=== PATIENT | female | born 1935 | race Caucasian/White ===

== ENCOUNTER 2017-01-11 09:38 | Outpatient (CLI) | payer MEDICARE, OTHER | END 2017-01-11 09:39 | disposition critical access hospital (66) | LOC: EMS 09:38 | PROVIDERS: ATTEND Surgery | DX: R47.9 Unspecified speech disturbances (principal); R41.0 Disorientation, unspecified; R29.6 Repeated falls | CPT/HCPCS: A0425; A0427 ==

== ENCOUNTER 2017-01-11 09:55 | Inpatient (IN) | payer MEDICARE, OTHER ==
--- NOTE | 2017-01-11 10:22 | ED Physician Documentation ---
History of Present Illness - Stated complaint Stated Complaint: POSS CVA - Chief complaint Chief Complaint: Neuro - Additonal information Additional information: hx from pt 81 female a fib on coumadin and dig per her she awoke yesterday with expressive apahasia and diff walking last night she fell out of bed - but the sx were present prior to that pt denies HARDING and neck pain also denies chest and abd and ext pain no fever cough NVD urinary sx thinks she had a stroke Review of Systems Constitutional: denies: Fever, Chills Eyes: reports: Decreased vision (R eye on exma) Ears: denies: Loss of hearing Cardiac: denies: Chest pain / pressure, Palpitations (has a fib) Respiratory: denies: Dyspnea, Cough GI: denies: Abdominal Pain : denies: Dysuria Musculoskeletal: denies: Neck pain Neurologic: reports: Difficulty speaking. denies: Focal weakness, Headache Endocrine: reports: Easy bruising / bleeding (coumadin) Immunocompromised: denies: Immunocompromised PD PAST MEDICAL HISTORY - Past Medical History Cardiovascular: Atrial fibrillation Respiratory: None Endocrine/Autoimmune: Type 2 diabetes GI: None BUILDING SUPERINTENDENT: None : None HEENT: None Psych: None Derm: None - Past Surgical History Past Surgical History: Yes /BUILDING SUPERINTENDENT: Hysterectomy - Present Medications Home Medications: Ambulatory Orders Medication Instructions Recorded Confirmed Digoxin 250 mcg PO DAILY 01/11/17 01/11/17 Warfarin Sodium [Coumadin] 1 mg PO [id number] 01/11/17 01/11/17 Warfarin Sodium [Coumadin] 2 mg PO MO 01/11/17 01/11/17 - Allergies Allergies/Adverse Reactions: Allergies Allergy/AdvReac Type Severity Reaction Status Date / Time No Known Drug Allergies Allergy Unverified 01/11/17 10:02 - Social History Does the pt smoke?: No Smoking Status: Former smoker Does the pt drink ETOH?: No PD ED PE NORMAL - Vitals Vital signs reviewed: Yes - General General: Alert and oriented X 3 - HEENT HEENT: PERRL, EOMI, Other (dec vision right eye , pt reports blurry, does not jeanine to have a field cut) - Neck Neck: Supple, no meningeal sign, No bruit - Cardiac Cardiac: RRR - Respiratory Respiratory: No respiratory distress, Clear bilaterally - Abdomen Abdomen: Soft, Non tender - Neuro Neuro: Alert and oriented X 3, No motor deficit, No sensory deficit. 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 (blurry vision R eye), Normal speech (mild to mod expressive and receptive aphasia) Results - Vitals Vitals: Vital Signs - 24 hr 01/11/17 01/11/17 01/11/17 09:56 10:46 11:23 Heart Rate 94 101 H 98 Respiratory 16 16 16 Rate Blood Pressure 178/77 H 178/77 H 179/87 H O2 Saturation 91 L 99 98 Oxygen O2 Source Room air - EKG (time done) 1012 Rate: Rate (enter#) (70) Rhythm: Atrial fibrillation Ischemia: Other (ST depr and TWI lateral) - Labs Labs: Laboratory Tests 01/11/17 01/11/17 01/11/17 10:21 10:21 10:21 WBC 8.5 RBC 5.26 Hgb 15.7 Hct 46.5 MCV 88.4 MCH 29.8 MCHC 33.8 RDW 14.0 Plt Count 167 MPV 9.4 Neut # 4.8 Lymph # 2.7 Mckenzie # 0.9 Eos # 0.1 Baso # 0.0 Absolute Nucleated RBC 0.01 Nucleated RBCs 0.1 Sodium 136 Potassium 4.4 Chloride 98 L Carbon Dioxide 30 Anion Gap 8.0 BUN 22 H Creatinine 0.9 Estimated GFR (MDRD) 60 L Glucose 214 H Calcium 9.5 Troponin I Last Dose Date UNK Last Dose Time UNK Digoxin 1.8 01/11/17 10:21 WBC RBC Hgb Hct MCV MCH MCHC RDW Plt Count MPV Neut # Lymph # Mckenzie # Eos # Baso # Absolute Nucleated RBC Nucleated RBCs Sodium Potassium Chloride Carbon Dioxide Anion Gap BUN Creatinine Estimated GFR (MDRD) Glucose Calcium Troponin I 0.04 Last Dose Date Last Dose Time Digoxin - Rads (name of study) CTH Radiology: See rad report (no acute infarct hemorrhage mass or hydro, white matter changes c/s small vessel ischemic dz, consider MRI) PD MEDICAL DECISION MAKING - ED course ED course: CTH neg - no bleed sx are c/w subacute CVA not a TPA candidate 2/2 time since onset and INR d/w Dr Guillen and will admit 1210 sx clearing - speaking well now - updated hospitalist abn EKG - noold to compare - no CP, on dig - add on trop 1st sat 91 % - not SOA - all other sats nl s any intervention Departure - Departure Disposition: 66 [facility] DC/Xfer Clinical Impression: Cerebrovascular accident (CVA) Qualifiers: CVA mechanism: unspecified Qualified Code(s): I63.9 - Cerebral infarction, unspecified TIA (transient ischemic attack) Qualifiers: Transient cerebral ischemia type: unspecified Qualified Code(s): G45.9 - Transient cerebral ischemic attack, unspecified Condition: Good Discharge Date/Time: 01/11/17 13:55 NIHSS - Time Time: 10:15 - Level of Consciousness Level of consciousness: (0) Alert, Keenly responsive LOC Questions: (0) Answers both Q's correct LOC Commands: (1) Performs one correctly - Gaze Best Gaze: (0) Normal - Visual Visual: (1) Partial hemianopia - Facial Palsy Facial Palsy: (0) Normal, symmetrical movement - Motor Arms (both separate) Motor Arm (right): (0) No drift Motor Arm (left): (0) No drift - Motor Legs (both separate) Motor Leg (right): (0) No drift Motor Leg (left): (0) No drift - Limb Ataxia Limb Ataxia: (0) Absent - Sensory Sensory: (0) Normal - Best Language Best Language: (1) [id number] - Dysarthria Dysarthria: (0) Normal - Extinction and Inattention (formally neg Extinction and inattention: (0) No abnormality - Total Score/Results Total Score/Result: 3
[2017-01-11 10:30] LABS: BASOPHILS % (AUTO) 0.5 %; EOSINOPHILS # (AUTO) 0.1 10^3/uL (0.0-0.7); EOSINOPHILS % (AUTO) 0.7 %; HCT - HEMATOCRIT 46.5 % (37.0-47.0); HGB - HEMOGLOBIN 15.7 g/dL (12.0-16.0); LYMPHOCYTES # (AUTO) 2.7 10^3/uL (1.5-3.5); LYMPHOCYTES % (AUTO) 32.1 %; MEAN CORPUSCULAR HEMOGLOBIN 29.8 pg (27.0-31.0); MEAN CORPUSCULAR HGB CONC 33.8 g/dL (32.0-36.0); MEAN CORPUSCULAR VOLUME 88.4 fL (81.0-99.0); MEAN PLATELET VOLUME 9.4 fL (7.9-10.8); MONOCYTES # (AUTO) 0.9 10^3/uL (0.0-1.0); MONOCYTES % (AUTO) 10.9 %; NEUTROPHILS # (AUTO) 4.8 10^3/uL (1.5-6.6); NEUTROPHILS % (AUTO) 55.8 %; NUCLEATED RED BLOOD CELLS AUTO 0.1 /100WBC; RED BLOOD COUNT 5.26 10^6/uL (4.20-5.40); UNCORRECTED WHITE BLOOD COUNT 8.5 x10^3/uL; WHITE BLOOD COUNT 8.5 x10^3/uL (4.8-10.8)
[2017-01-11 10:37] LABS: CALCIUM 9.5 mg/dL (8.5-10.3); CREATININE 0.9 mg/dL (0.4-1.0); POTASSIUM 4.4 mmol/L (3.5-5.0)
--- NOTE | 2017-01-11 11:10 | CT Preliminary Report ---
Exam: CT Head W/O Stroke Protocol IMPRESSION: 1. No definite acute infarct, hemorrhage, mass, or hydrocephalus. 2. Mild white matter changes that while age-indeterminate appear chronic, suggesting sequela of chron ic small vessel ischemic disease. If there is clinical concern for acute stroke or symptoms persist an MR brain without contrast can be considered for so or small pathology. RADIA The call report notification system was initiated by Dr. Jag Siegel at 11:03 hrs on 12/24 . The above findings were discussed with Alfreda Medina by Dr. Jag Siegel at 11:08 hrs on 01/11/17. SITE ID: [id number]
--- NOTE | 2017-01-11 11:13 | CT Report ---
EXAM: CT HEAD EXAM DATE: 01/11/2017 10:57 AM. CLINICAL HISTORY: 81-year-old with difficulty walking. COMPARISON: None. TECHNIQUE: Multiaxial CT images were obtained from the foramen magnum to the vertex. IV contrast: Non e. Reformats: Coronal. In accordance with CT protocol optimization, one or more of the following dose reduction techniques w ere utilized for this exam: automated exposure control, adjustment of mA and/or KV based on patient s ize, or use of iterative reconstructive technique. FINDINGS: Parenchyma: No acute parenchymal hemorrhage, mass, or midline shift. There is mild bilateral areas of white matter hypoattenuation seen while age-indeterminate appear chronic. Cortical Mantle edwards-white differentiation appears intact. Extraaxial Spaces: Normal for age. No subdural or epidural collections identified. Ventricles: The ventricles and cortical sulci are enlarged, consistent with age-related tissue loss. Sinuses: The visualized paranasal sinuses, mastoid air cells, middle ear cavities are clear. Orbits: Change of bilateral lens replacement. Bones: No evidence of fracture or calvarial defect. Changes of hyperostosis frontalis internus. Other: Vascular calcifications of the cavernous ICA segments. IMPRESSION: 1. No definite acute infarct, hemorrhage, mass, or hydrocephalus. 2. Mild white matter changes that while age-indeterminate appear chronic, suggesting sequela of chron ic small vessel ischemic disease. If there is clinical concern for acute stroke or symptoms persist an MR brain without contrast can be considered for so or small pathology. RADIA The call report notification system was initiated by Dr. Jag Siegel at 11:03 hrs on 12/24 . The above findings were discussed with Alfreda Medina by Dr. Jag Siegel at 11:08 hrs on 01/11/17. Referring Provider Line: [phone] SITE ID: [id number]
[2017-01-11] MEDS ORDERED: oxyCODONE 5 MG TABLET PO PRN (11:46)
[2017-01-11] MEDS ORDERED: ACETAMINOPHEN 325 MG TABLET PO PRN (11:46)
[2017-01-11] MEDS ORDERED: ONDANSETRON ODT 4 MG TABLET TL PRN (11:46)
[2017-01-11] MEDS ORDERED: SODIUM CHLORIDE FLUSH 0.9% 10 ML SYRINGE IVP PRN (11:46)
[2017-01-11] MEDS ORDERED: ONDANSETRON 4 MG/2 ML VIAL IVP PRN (11:46)
[2017-01-11] MEDS: SODIUM CHLORIDE FLUSH 0.9% 10 ML SYRINGE IVP SCH ×2 (15:00→21:34)
--- NOTE | 2017-01-11 17:02 | MRI Preliminary Report ---
Exam: MRI Brain W/O IMPRESSION: 1. The study is limited by significant amount of patient motion degradation. 2. No restricted diffusion signal is seen to suggest an acute or subacute CVA. 3. No intracranial mass. 4. Presumed small vessel ischemic change is seen in the cerebral hemisphere white matter bilaterally and in the central wilfreod. RADIA SITE ID: [id number]
--- NOTE | 2017-01-11 17:22 | HISTORY & PHYSICAL EXAMINATION ---
DATE OF ADMISSION: 01/11/2017 01/11/2017. ADMITTING PROVIDER: Estella Guillen MD. PRIMARY CARE PROVIDER: Bernardo Andrade MD. CHIEF COMPLAINT: Loss of vision right eye and inability to express herself. HISTORY OF PRESENT ILLNESS: The patient is a delightful 81-year-old female who lives in her own home with her . It is the second marriage for both of them, and they have been living here on the [facility] since the 1970s. They live independently and that they still are responsible for their own acti vities of daily living, grocery shopping, etc. They have someone come in every other Monday to nancy an the house. The patient used to be an avid golf player and stopped about 6-9 months ago. She had de veloped some right rib cage pain that was inextricable and sharp and severe with certain positions. S he found that she could not follow through with the golf swing and had to stop. She has had a CT of t he chest for this in 11/2015. The only thing that was found with that CT of the chest was a left thyr oid nodule. About 3 or 4 months ago her noticed that she just was getting less and less sharp with regard s to thought process and moving quickly. He felt uncomfortable with her driving and basically said sh e could not drive anymore starting about 4 months ago. A month ago he noticed that she was starting to be more forgetful and a little confused. The examples he gives me is writing out checks and bills. Some bills would be sent without stamps. Some bills wou ld be sent without a signature on the bottom of the check, and some bills would just be sent in with no checks at all. So he is to start paying the bills with her from here on out to make sure everythin g is filled in. There has been no change in appetite. No change in her ability to dress herself and feed herself. 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 An echocardiogram in November 2015 confir med the sclerosis without stenosis and a stable ventricular function. Yesterday, without any antecedent change in the history, he realized that she was not making much sen se. Even she realized that she was trying to say things that would not come out of her mouth correctl y. She was having a hard time with word finding. She felt like her balance was off and she was starti ng to smack into things. She fell out of the bed last night. Because her thinks she had a str cameron, he brought her in. Both of them are pretty firm in stating they do not want a lot of things done . The only reason he brought her in was because they did know what else to do in case she needed more and more help. While they both have the strong philosophical bent that less is more, they really hav e not planned for the inevitability of one of them becoming so disabled that they would need sudden c are. That is why he brought her in. She was evaluated by Dr. Medina and blood pressure was 178/77. She was afebrile, 90s pulse rate and i n atrial fibrillation. Dr. Medina found that she had decreased vision in the right eye, but no other focal neurological deficits. Her atrial fibrillation is adequately anticoagulated with a supratherape utic INR 3.5. CT of the head shows no definite acute infarct, hemorrhage, mass, or hydrocephalus. She has white mat ter changes. Dr. Medina confirms the decreased vision in her right eye exam. As such the patient is now being admitted for probable stroke. PAST MEDICAL HISTORY: 1. Type 2 diabetes mellitus, uncontrolled, with complications of retinopathy. Again, this patient is very firm in her philosophy of life. Less is more. She does not believe in taking medications for trevor betes because at her age, it is time for her to go if necessary. Her A1c was 12% with Dr. Andrade this last few months. She used to be as high 16%. She denies kidney disease, and denies neuropathy. 2. Hypertension. She became dizzy in 2016 so her losartan was cut in half. 3. Chronic atrial fibrillation. Echocardiogram 11/2015 done for increasing systolic murmur. She does not have any aortic sclerosis, no stenosis and an intact left ventricle. 4. Chest pain in 2016 resulted in a sharp curtail in her golf game, resulted in a CT of the chest shante t was negative except for left thyroid nodule. 5. Left thyroid nodule was evaluated with an ultrasound and felt to be benign multinodular goiter. 6. Hyperlipidemia for which he declined treatment. 7. Gout. 8. History of appendectomy. 9. G3, P3, history of hysterectomy. 10. Dry eyes. 11. Syncope 07/2012 resulting in ER evaluation with echo, EKG and labs and she was sent home. ALLERGIES: NO KNOWN DRUG ALLERGIES. MEDICATIONS: 1. Coumadin 2 mg daily. 2. Digoxin 0.25 mg daily. SOCIAL HISTORY: to her second . Originally born in [place]. She is a current non smoker who quit 2 decades ago. She drinks an occasional glass of wine daily. She has no history of re creational substance abuse. FAMILY HISTORY: Dad at a relatively young age of emphysema. She thinks he was in his early 60s. Mom in her late 70s of old age. She cannot necessarily remember what she of. She has 2 brothers. They are both alive. Of her 3 children, 1 son in a fire in the . REVIEW OF SYSTEMS: CONSTITUTIONAL: There has been no fevers, sweats. No unexpected weight changes and appetite has been good. ENT: She has had cataracts in the past. She has retinopathy. Blurred vision in the right eye today on ly. No problems with chewing or swallowing. No headaches. PULMONARY: Denies coughing, wheezing, shortness of breath, chest congestion. CARDIAC: Denies history of heart attack, denies congestive heart failure. Denies edema, chest pain as sociated with exertion. GASTROINTESTINAL: Appetite has been good. No recent changes. Denies diarrhea, blood in her stool. GENITOURINARY: Denies urgency, frequency, dysuria, flank pain. JOINTS: Occasionally her back is stiff and her knees are stiff. Occasionally her right shoulder is st iff. Between the left rib cage pain and her knees that is the main reason she stopped golfing. SKIN: Denies any recent bruising, petechiae, rashes or new skin lesions. PSYCHIATRIC: Denies depression, hallucinations, suicidal ideation. 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 She does not remember having a syncopal episode in July 2012. She does not recall ever having these symptoms. Again, her describes mild memory loss and la ck of good reflexes which stopped him from letting her drive a few months ago, increasing memory loss a month ago, and a definite change yesterday morning. PHYSICAL EXAMINATION: VITAL SIGNS: The blood pressure is in the 170s/80s in our emergency room. She has gotten as high as 2 16/122 on the left arm and 194/135 in the right arm. Pulse is in the 90s and atrial fibrillation. 98% on room air. Respirations 16. GENERAL: On examination, she is a thin, thin, thin, alert, elderly female whose is at the bed side. Over the course of the morning into the afternoon, by the time of admission, her speech is incr eased in fluidity and lucidity. However, she is still having problems with word finding and is occasi onally vaguely forgetful when I talk to her. HEAD AND NECK: Unremarkable other than profound muscle loss. It has left her face with bilateral temp oral wasting, prominent skull features through her face, and dentures and teeth have become quite pro minent. Pupils are reactive. Sclerae nonicteric. Slightly dry oral mucosa. NECK: Supple without JVD or bruits. LUNGS: Clear to auscultation and percussion, and she does not have any increased respiratory effort. CARDIOVASCULAR: PMI is normally placed. She has an irregular rate and rhythm with a systolic ejection murmur that is loudest at the right upper sternal border and does radiate into her carotids. There i s no right ventricular lift. ABDOMEN: Soft, nontender, scaphoid. In looking at her body if she lies in the bed, her rib cage is qu ite pronounced because of diffuse muscle wasting. EXTREMITIES: Without clubbing, cyanosis or edema. NEUROLOGIC: Neurologically she is oriented to person, place and time. She can follow 2-step commands. Having a little problem hearing me, understanding what I ask her to do and it might take 2 prompts b efore she follows through promptly. Her speech is fluent, and again only main minor word finding. Upp er and lower extremity strength testing was normal. She had no ataxia. LABORATORIES: Sodium and potassium normal, chloride 98, BUN 22, creatinine 0.9. Random glucose 214. H er A1c 10/2015 was 11%. Troponin less than 0.04. INR 3.5. White cell count 8.5, hemoglobin 15.7, rajni tocrit 46.5. Urine microalbumin in October was 4.8. Digoxin level is 1.8. Head CT as above. ASSESSMENT AND PLAN: 1. Stroke. With an INR that is supratherapeutic, I doubt embolic stroke. However, that is always a po ssibility. She has atrial fibrillation. I also wonder if she may have had a small old ischemic infarc t in the face of a lady whose blood pressure has not always been the best control, and whose diabetes is uncontrolled. She has all the risk factors. She will get MRI for better imaging. Carotid Dopplers . I plan on having here for 2 midnights with PT evaluation, speech evaluation, and OT evaluation. Go al is to return to home. 2. Type 2 diabetes mellitus, uncontrolled with complications. Again, her life philosophy is very firm . Her agrees with her, but is uncomfortable. Nevertheless, he says he is never going to force her to take medicines that she does not want to take. Aside from during this stay, I do not know wha t point I would be making by bringing her sugars under perfect control. 3. Hypertension, uncontrolled. In the face of possible stroke allow permissive hypertension with syst olic 200, diastolic 100. Will add a slight dose of Norvasc for vasodilation at 2.5 mg. 4. Memory loss. History is that has been a subtle worsening over the last year. She could be sufferin g the effects of vascular dementia, or other process. Whatever the process is it almost does not frank er in that again, she states that she will let mother nature take its course and really does not want any intervention. With that in mind, I gently suggested that maybe she could make plans. If she were suddenly left quite ill, never wanting to go to a retirement, etc, her has to have help. H as she ever thought about planning for short stay in a [facility] facility with comfort palliati ve care only, if only to make it easier on her , or has she talked to her daughters about her philosophy so that they would come take care of her, if needed. Financially they do have the resource s to be able to pay for in-home support. 5. DO NOT RESUSCITATE, DO NOT INTUBATE STATUS. 6. DVT prophylaxis is a moot point with an INR that is greater than 3. JOB #: [id number] EXT JOB #:[id number]
--- NOTE | 2017-01-11 17:31 | MRI Report ---
EXAM: MRI BRAIN WITHOUT CONTRAST EXAM DATE: 01/11/2017 04:37 PM. CLINICAL HISTORY: Expressive aphasia, vision loss, atrial fibrillation. COMPARISON: CT head 01/11/2017. TECHNIQUE: Multiplanar, multisequence T1-weighted and fluid-sensitive MR sequences of the brain were performed. Sequences optimized for routine evaluation. Other: None. IV Contrast: None. FINDINGS: Motion degradation is present. No obvious cerebellar tonsillar ectopia is present. No abnormal diffusion signal or magnetic susceptibility is identified in the brain parenchyma. There is confluent FLAIR hyperintense signal adjacent to each lateral ventricle body. There are a few small FLAIR hyperintensities in the cerebral hemisphere white matter bilaterally. Patchy T2 hyperintensity is seen in the central wilfredo. Age-appropriate prominence of the ventricles and sulci is noted. No extraaxial fluid collection is id entified. No intracranial mass is noted. No abnormal T1 shortening is present within the brain parenchyma. IMPRESSION: 1. The study is limited by a significant amount of patient motion degradation. 2. No restricted diffusion signal is seen to suggest an acute or subacute CVA. 3. No intracranial mass. 4. Presumed small vessel ischemic change is seen in the cerebral hemisphere white matter bilaterally and in the central wilfredo. RADIA Referring Provider Line: [phone] SITE ID: [id number]
[2017-01-11] MEDS: amLODIPine 5 MG TABLET PO SCH (17:55)
--- NOTE | 2017-01-11 18:28 | Ultrasound Preliminary Report ---
Exam: US Carotid Doppler Complete IMPRESSION: 1. Right carotid system: Greater than 70% stenosis in the proximal right internal carotid artery. 2. Left carotid system: No hemodynamically significant stenoses. 3. To and fro flow in the left vertebral artery. Antegrade flow in the right vertebral artery. Sudha, patient nurse, was informed of the findings at 6:26 PM on 01/11/2017. Validated velocity measurements with angiographic measurements and velocity criteria are extrapolated from diameter data as defined by the Society of Radiologists in Ultrasound Consensus Conference Radi ology 2003; 229;340-346. RADIA The above critical findings were discussed with Sudha by Dr. Agnes Caballero at 18:26 hrs on . SITE ID: [id number]
--- NOTE | 2017-01-11 18:44 | Ultrasound Report ---
EXAM: CAROTID DOPPLER ULTRASOUND EXAM DATE: 01/11/2017 05:19 PM. CLINICAL HISTORY: Expressive aphasia, vision loss, Afib. COMPARISON: None. TECHNIQUE: Real-time sonographic vascular imaging was performed by the analog ic design architect through the [employer] arterial system with a linear transducer utilizing color-flow, Doppler flow and spectral analysis. Multiple farm loan representative static images were saved for review. FINDINGS: Right vertebral artery is antegrade in flow. To and fro flow is present in the left vertebr al artery. Significant atheromatous plaques are present in the right carotid bulb. Of note, evidence of focal na rrowing with elevated systolic velocities and ICA/CCA ratio is noted in the proximal right internal c arotid artery consistent with a stenosis of greater than 70%. Atheromatous plaques are noted in the left carotid bulb and internal carotid artery without hemodynam ically significant stenoses. Right: RCCA Prox: PSV 60 cm/sec. RCCA Dist: PSV 40 cm/sec, EDV 4 cm/sec. RECA: PSV 73 cm/sec. R Bulb: PSV 86 cm/sec, EDV 8 cm/sec, ICA/CCA ratio 2.2, degree of stenosis <50%, plaque estimate <50% . RUBA Prox: PSV 241 cm/sec, EDV 50 cm/sec, ICA/CCA ratio 6, degree of stenosis >70%, plaque estimate > 70%. RUBA Mid: PSV 207 cm/sec, EDV 21 cm/sec, ICA/CCA ratio 5.2, degree of stenosis >70%, plaque estimate >70%. RUBA Dist: PSV 63 cm/sec, EDV 16 cm/sec, degree of stenosis <50%, plaque estimate <50%. RVA: PSV 52 cm/sec. RVA flow direction: Antegrade. Left: LCCA Prox: PSV 63 cm/sec. LCCA Dist: PSV 53 cm/sec, EDV 10 cm/sec. LECA: PSV 192 cm/sec. L Bulb: PSV 56 cm/sec, EDV 11 cm/sec, ICA/CCA ratio 1.1, degree of stenosis <50%, plaque estimate <50 %. LICA Prox: PSV 65 cm/sec, EDV 12 cm/sec, ICA/CCA ratio 1.2, degree of stenosis <50%, plaque estimate <50%. LICA Mid: PSV 112 cm/sec, EDV 28 cm/sec, ICA/CCA ratio 2.1, degree of stenosis <50%, plaque estimate <50%. LICA Dist: PSV 82 cm/sec, EDV 22 cm/sec, ICA/CCA ratio 1.5, degree of stenosis <50%, plaque estimate <50%. LVA: PSV 42 cm/sec. LVA flow direction: To and fro. Other: None. IMPRESSION: 1. Right carotid system: Greater than 70% stenosis in the proximal right internal carotid artery. 2. Left carotid system: No hemodynamically significant stenoses. 3. To and fro flow in the left vertebral artery. Antegrade flow in the right vertebral artery. Validated velocity measurements with angiographic measurements and velocity criteria are extrapolated from diameter data as defined by the Society of Radiologists in Ultrasound Consensus Conference Radi ology 2003; 229;340-346. RADIA The above critical findings were discussed with Nurse Haley by Dr. Agnes Caballero at 18:26 hrs on 01/11/17. Referring Provider Line: [phone] SITE ID: [id number]
[2017-01-11 19:00] LABS: BILIRUBIN,URINE NEGATIVE (NEGATIVE)
[2017-01-11 19:03] LABS: UA w/ MICROSCOPIC CHARGE YES
[2017-01-11 19:10] LABS: UR CULTURE IF IND NOT INDICATED; WBC,URINE 0-3 /HPF (0-5)
[2017-01-12] MEDS: SODIUM CHLORIDE FLUSH 0.9% 10 ML SYRINGE IVP SCH (06:49)
--- NOTE | 2017-01-12 08:05 | PROVIDER PROGRESS NOTE ---
Subjective - Prog Note Date Prog Note Date: 01/12/17 Prog Note Time: 08:04 - Subjective Pt reports feeling: Improved Subjective: she wants to go home. refuses to stay longer Current Medications - Current Medications Current Medications: Active Medications Acetaminophen (Tylenol) 650 mg PO Q4HR PRN PRN Reason: Pain 1 to 4 Amlodipine Besylate (Norvasc) 5 mg PO DAILY [facility] Last Admin: 01/11/17 17:55 Dose: 5 mg Ondansetron HCl (Zofran Odt) 4 mg TL Q6HR PRN PRN Reason: Nausea / Vomiting Ondansetron HCl (Zofran Inj) 4 mg IVP Q6HR PRN PRN Reason: Nausea / Vomiting Oxycodone HCl (Roxicodone) 5 mg PO Q4HR PRN PRN Reason: Pain 5 to 7 Polyethylene Glycol (Miralax) 17 gm PO DAILY [facility] Sodium Chloride (Normal Saline Flush 0.9%) 10 ml IVP PRN PRN PRN Reason: NEEDED PER PROVIDER ORDERS Sodium Chloride (Normal Saline Flush 0.9%) 10 ml IVP Q8HR [facility] Last Admin: 01/12/17 06:49 Dose: 10 ml Digoxin 250 mcg PO DAILY 01/11/17 Warfarin Sodium [Coumadin] 1 mg PO SUTUWETHFRSA 01/11/17 Warfarin Sodium [Coumadin] 2 mg PO MO 01/11/17 Objective - Vital Signs/Intake & Output Reviewed Vital Signs: Yes Intake & Output: Intake & Output 01/09/17 01/10/17 01/11/17 01/12/17 23:59 23:59 23:59 23:59 Intake Total 680 160 Output Total 50 650 Balance 630 -490 - Objective General Appearance: positive: Alert Eyes Bilateral: positive: PERRL, EOMI ENT: positive: Pharynx nml Neck: positive: No JVD. negative: Stiff neck, Carotid bruit Respiratory: positive: No respiratory distress. negative: Wheezes, Rales, Rhonchi Cardiovascular: positive: Irregularly irregular, Systolic murmur. negative: Gallop/S4, Friction rub - Lab Results Fish Bones: 01/11/17 10:21 01/11/17 10:21 Other Labs: Lab Results x24hrs 01/11/17 01/11/17 Range/Units 18:35 12:20 Whole Blood INR 3.5 H (0.8-1.2) Urine Color YELLOW Urine Clarity HAZY (CLEAR) Urine pH 6.0 (5.0-7.5) PH Ur Specific [place] 1.025 (1.002-1.030) Urine Protein NEGATIVE (NEGATIVE) mg/dL Urine Glucose (UA) 500 H (NEGATIVE) mg/dL Urine Ketones NEGATIVE (NEGATIVE) mg/dL Urine Occult Blood TRACE-LYSE (NEGATIVE) Urine Nitrite NEGATIVE (NEGATIVE) Urine Bilirubin NEGATIVE (NEGATIVE) Urine Urobilinogen 0.2 (NORMAL) (NORMAL) E.U./dL Ur Leukocyte Esterase NEGATIVE (NEGATIVE) Urine RBC 0-5 (0-5) /HPF Urine WBC 0-3 (0-5) /HPF Ur Squamous Epith Cells MANY Squamous H (<= Few) Urine Bacteria Moderate H (None Seen) /HPF Urine Casts 0-2 Course Granular /LPF Ur Microscopic Review INDICATED Urine Culture Comments NOT INDICATED Assessment/Plan - Problem List (1) TIA (transient ischemic attack) Impression: she cleared after a few hours and is back to her baseline, work up shows carotid stenosis may be casue see discharge summary. Qualifiers: Transient cerebral ischemia type: unspecified Qualified Code(s): G45.9 - Transient cerebral ischemic attack, unspecified
[2017-01-12] MEDS ORDERED: POLYETHYLENE GLYCOL 3350 17 GM PACKET PO SCH (09:00)
[2017-01-12 09:48] LABS: PT - PROTHROMBIN TIME 33.8 secs (9.9-12.6)
[2017-01-12] MEDS: amLODIPine 5 MG TABLET PO SCH (10:47)
--- NOTE | 2017-01-12 10:49 | Discharge Plan ---
Discharge Plan Disposition: Home, Self Care Condition: Fair Prescriptions: amLODIPine [Norvasc] 5 mg PO DAILY #30 tablet Diet: Regular Activity Restrictions: Activity as Tolerated Shower Restrictions: No Driving Restrictions: Yes (no driving) Assistance Devices: Walker (front wheeled at home already) Weight Bearing: Full Weight Instruction Topics: Blockage Carotid Artery Additional Instructions or Follow Up instructions: You were admitted and evaluated to the hospital because of sudden inability to speak, a little bit of unsteadiness and a change in your vision. After doing an MRI of the head, ultrasound of the neck arteries, and a CT of the head we think that you have a narrowing of the right internal carotid causing some of your symptoms. You have shared with us that you have a very specific philosophy with regards to health care. You want to minimize as many interventions as possible and really do not want anything done. We had a long talk about how you can make that happen at home. For instance you do not want to come to the hospital if you get severely ill with a stroke or heart attack and want to let mother nature take its course. However, there is no one at home to help her if you get that sick. It may take you days to weeks to finally pass away as you want. We recommend that you set up some type of support system for your when the time comes of your inevitable illness. Please let Dr. Andrade know and he may help you by writing alf orders if your cannot take care of you. While you are in the hospital your blood pressure was severely elevated. We started you on a very small dose of a blood pressure pill and hope that you keep on taking it. You are a candidate for taking diabetic medications and cholesterol medications but you very clearly state you do not want to do that. You can no longer drive. Physical therapy has evaluated you and would like you to use a front wheel walker at all times. Please see Dr. Andrade in the next 1-2 weeks. No Smoking: If you smoke, Please STOP! Call for help. Follow-up with: Bob Andrade MD [Primary Care Provider] -
[2017-01-12 11:11] VITALS: BP 118/88
--- NOTE | 2017-01-26 07:12 | DISCHARGE SUMMARY ---
DATE OF ADMISSION: 01/11/2017 DATE OF DISCHARGE: 01/12/2017 PRIMARY CARE PROVIDER: Bernardo Andrade MD. DISCHARGE DIAGNOSES 1. Transient ischemic attack. 2. Right internal carotid artery stenosis. 3. Memory loss. 4. Type 2 diabetes mellitus, uncontrolled. 5. Hypertension. DISCHARGE MEDICATIONS 1. Norvasc 5 mg p.o. daily. 2. Digoxin 0.25 mg p.o. daily. 3. Coumadin 2 mg p.o. daily on Monday and 1 mg on Sundays, Tuesdays, Wednesdays, , Fridays, Saturdays. PRINCIPAL PROCEDURES 1. Head CT showing no acute changes. 2. Brain MRI limited by patient motion artifact degradation. No acute or subacute stroke. No intracra nial masses. Small vessel ischemic changes seen in the cerebral hemispheric white matter bilaterally. 3. Carotid Doppler study with significant atheromatous plaques present in the right carotid bulb with focal narrowing with elevated systolic velocities in the proximal right internal carotid artery cons istent with stenosis of greater than 70%. Right vertebral artery is anterograde flow. To and fro flow is present in the left vertebral artery. The left system has no significant stenosis. HOSPITAL COURSE: The patient is an 81-year-old female who lives in her own home with her . Thr ee or four months ago, her noticed that she was getting less and less sharp with regard to th ought process and moving quickly. He felt uncomfortable with her driving and said she could not drive anymore. A month ago, she started to be way more forgetful and confused. Writing out checks became d ifficult for her. He is starting to pay the bills with her from here on out to make sure everything i s filled in. Yesterday, the day before admission, she was not making much sense. She was trying to sa y things and it would not come out of her mouth correctly. She was having a hard time with word findi ng. She also felt like her balance was off and she was starting to walk into things. She fell out of bed last night. Today, because he thinks that she may have had a stroke, he brought her in. Both of t hem are pretty firm in stating they do not want a lot of things done. The only reason he brought her in was because they did not know what else to do in case she needed more help. She was found to have a blood pressure of 178/77, afebrile, 90 pulse rate, and in atrial fibrillation . She has decreased vision in the right eye on physical exam, but no other focal neurological deficit s. INR was 3.5. HOSPITAL COURSE: Studies showed her to have a right carotid stenosis. She has not had an acute stroke . Diabetes is uncontrolled. She does have uncontrolled hypertension, as well as hyperlipidemia. Long conversations were had with this patient and her and they both again state that they do not w ant interventions done. They do not want surgery for the right carotid stenosis. They also do not wan t any medications for her diabetes or her hyperlipidemia. They were reluctant to take Norvasc, but we re willing to do that. She was evaluated by Physical Therapy who felt a front wheel walker would be in order. The patient wa s discharged in stable condition, but a long talk was had about how she could structure her life in t he outpatient setting to stay at home in the inevitable event of stroke or heart attack. She is stron gly encouraged to contact Dr. Andrade and make arrangements with regards to having fpc orders written if that is what she decided at the last second. On the day of discharge, temperature was 36.4, pulse 87, blood pressure 118/88, respirations 18, 96% on room air. She is a slender, alert, elderly female with a little bit of gait ataxia, mild memory lo ss in that you do need to repeat yourself and need to prompt her at times, but no word finding proble ms. She was back to baseline. She had no focal deficits, and visual loss that Dr. Medina was finding on physical exam was completely resolved. She is felt to have had a TIA, carotid stenosis. Greater than 30 minutes were spent in coordinating discharge and discussing her goals of care. She re iterate over and over again, she does not want a statin, she does not want an aspirin and she does no t medications to control her diabetes. I carefully explained to she and her how those interac t to increase your risk of heart attack and stroke, and they still decline. I have asked her to please see Dr. Andrade in followup in the next 1-2 weeks. JOB #: [id number] EXT JOB #:[id number]
== END 2017-01-12 11:50 | disposition home or self-care (01) | DRG 68 ==
LOC: EDUNIT# → ED 09:55 → MS2 11:46
PROVIDERS: ADMIT Specialist; ATTEND Specialist
DX: R47.01 Aphasia (principal); R26.2 Difficulty in walking, not elsewhere classified; H54.61 Unqualified visual loss, right eye, normal vision left eye; R29.703 NIHSS score 3; I48.91 Unspecified atrial fibrillation; E11.9 Type 2 diabetes mellitus without complications; I65.21 Occlusion and stenosis of right carotid artery; Z79.899 Other long term (current) drug therapy; R41.3 Other amnesia; E11.65 Type 2 diabetes mellitus with hyperglycemia; I48.2 Chronic atrial fibrillation; E11.319 Type 2 diabetes mellitus with unspecified diabetic retinopathy without macular edema; I10 Essential (primary) hypertension; E78.5 Hyperlipidemia, unspecified; Z66 Do not resuscitate; Z79.01 Long term (current) use of anticoagulants; Z87.891 Personal history of nicotine dependence; Z91.81 History of falling
CPT/HCPCS: 36415; 70450; 70551; 80048; 80162; 81001; 81003; 84484; 85025; 85610; 87086; 93005; 93880; 99285